=== PATIENT | female | born 1965 | race Caucasian/White ===

== ENCOUNTER 2021-01-26 18:27 | Emergency (ER) | payer OTHER, SELFPAY ==
[2021-01-26 21:39] LABS: Absolute Lymphocytes (CBC) 0.9 K/uL (0.7-4.9); Basophils % 0.2 % (0-1.3); Hematocrit 34.6 % (36.0-45.0); MPV 8.9 fL (7.6-11.3); RBC Red Blood Cell Count 3.56 M/uL (3.86-4.86)
[2021-01-26] MEDS ORDERED: MORPHINE 4 MG/ML SYR ONE ×2 (21:47→22:34)
[2021-01-26] MEDS ORDERED: ONDANSETRON 4 MG/2 ML VIAL ONE (21:47)
[2021-01-26] MEDS ORDERED: NA CHLORIDE 0.9% 1,000 ML ONE (21:48)
[2021-01-26 22:04] LABS: ALT/SGPT 54 U/L (12-78); AST/SGOT 58 U/L (15-37); Albumin 3.8 g/dL (3.4-5.0); Alkaline Phosphatase 77 U/L (45-117); BUN Blood Urea Nitrogen 32 mg/dL (7-18); Bicarbonate 27 mmol/L (21-32); Bilirubin Direct < 0.1 mg/dL (0-0.2); Bilirubin Total 0.3 mg/dL (0.2-1.0); Glucose Level 98 mg/dL (74-106); Lipase 198 U/L (73-393); Potassium 3.9 mmol/L (3.5-5.1); Protein, Total 7.2 g/dL (6.4-8.2); Sodium Level 142 mmol/L (136-145); Troponin (Emerg Dept Use Only) < 0.02 ng/mL (0.0-0.045)
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
[2021-01-27 01:25] VITALS: BP 122/78; TEMP 98; O2SAT 98
[2021-01-27] MEDS ORDERED: MORPHINE 4 MG/ML SYR ONE (03:21)
--- NOTE | 2021-01-27 04:32 | EKG ---
Test Date: 2021-01-26 Test Time: 23:11:15 Business Administration Professor: TL MEASUREMENT RESULTS: Intervals: Rate: 70 MT: 124 QRSD: 82 QT: 396 QTc: 427 [place]: P: 45 MT: 124 QRS: 72 T: 62 INTERPRETIVE STATEMENTS: Normal sinus rhythm Normal ECG No previous ECG available for comparison Electronically Signed On 01-27-21 04:32:10 CDT by Milton Ya
--- NOTE | 2021-01-27 08:11 | RAD REPORT ---
EXAM DESCRIPTION: Easton Castro Left01/26/2021 10:01 pm CLINICAL HISTORY: Left leg pain status post injury FINDINGS: No fracture is seen. Osteoporosis
--- NOTE | 2021-01-27 08:13 | RAD REPORT ---
EXAM DESCRIPTION: RAD - Tib Fib Right - 01/26/2021 10:01 pm CLINICAL HISTORY: Right leg pain FINDINGS: Depressed comminuted fracture lateral tibial plateau extending into the tibial spine. Larg e knee hemarthrosis is present
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
== END 2021-01-27 03:05 | disposition home or self-care (01) ==
LOC: ER 18:27
DX: S82.141A Displaced bicondylar fracture of right tibia, initial encounter for closed fracture (principal); V89.2XXA Person injured in unspecified motor-vehicle accident, traffic, initial encounter
CPT/HCPCS: 36415; 70450; 71260; 72125; 74177; 80048; 80076; 83690; 84484; 85025; 93005; 96372; 96374; 96375; 99285; G0390; J2405; J7030; Q9967